=== PATIENT | male | born 1965 | race Caucasian/White ===

== ENCOUNTER 2023-12-18 15:55 | Observation (INO) ==
[2023-12-18] MEDS: ASPIRIN CHEW 324 MG PO STA (16:16)
--- NOTE | 2023-12-18 16:16 | Emergency Department Note ---
Impression & Plan Chest pain, Stroke-like symptoms ED Provider Note NAME: SOCORRO PROCTOR AGE: 58 SEX: M : 1965 ARRIVES VIA: Walk-In INFORMANT: Patient, ED PROVIDER(S): Johan Fried DO CHIEF COMPLAINT: Chest pain HPI: The patient is a 58-year-old male who presented to the emergency department for an evaluation of chest pain. The patient describes anterior chest pain which began early this morning. The patient is noticed episodes of nausea and vomiting. He also notices some shortness of breath. He denies having any lower extremity swelling or pain. The patient did not see his family doctor. His family went to visit him and noticed that he was in discomfort and brought him to the emergency department. The patient states the pain has been constant ever since that time but it waxes and wanes. He denies it is exertional in nature. He denies having any back pain at this time. ROS: See above HPI for pertinent positives & negatives. A total of 10 systems reviewed and were otherwise negative. PAST MEDICAL HISTORY: See Below PAST SURGICAL HISTORY: See Below FAMILY HISTORY: See Below SOCIAL HISTORY: See Below HOME MEDICATIONS: See Below ALLERGIES: See Below VITALS: See Below PHYSICAL EXAMINATION: GENERAL: Patient is awake alert in no acute distress patient is resting comfortably and showing no signs of anxiety EYES: The conjunctivae are clear. The pupils are round and reactive. EARS, NOSE, MOUTH AND THROAT: The nose is without any evidence of any deformity. NECK: The neck is nontender and supple. RESPIRATORY: Normal respiratory effort is noted there is no evidence of wheezing rhonchi or rales CARDIOVASCULAR: Regular rate and rhythm noted there no murmurs rubs or gallops normal S1 normal S2. GASTROINTESTINAL: The abdomen is soft. Abdomen is nontender. MUSCULOSKELETAL/EXTREMITIES: There is no evidence of gross deformity full range of motion is noted in the hips and shoulders. SKIN: There is no obvious evidence of any rash. There was no calf tenderness or swelling in the legs. NEUROLOGIC: Patient is awake alert and oriented x3 strength is symmetric patellar reflexes are 2+ bilaterally MEDICAL DECISION MAKING: The patient is a 58-year-old male who presented to the emergency department for evaluation of chest pain. The patient described anterior chest pain which had been going on throughout the day. I discussed the patient's laboratory and radiographic studies with him. I also discussed the limitations of the emergency department workup for chest pain with him. The patient also started having symptoms of facial droop according to family. They were also concerned that his speech was slurred. The patient did not have any focal neurologic deficits on my physical exam. CT the brain did not show any acute intracranial process. The patient was reevaluated multiple times. Given the patient's age and comorbidities I do feel the patient may be a better candidate for inpatient management and further workup for his neurologic symptoms as well as his chest pain. I will discuss his case with the on-call [facility] hospitalist. Triage Nursing notes reviewed. Prior medical records reviewed Vital Signs: reviewed and remarkable for elevated blood pressure. Differential diagnosis: Cardiac ischemia, aortic dissection, pulmonary embolism, pneumothorax, pneumonia, pericarditis, myocarditis, esophageal rupture, GERD, cholecystitis, pancreatitis, musculoskeletal, as well as other pathologies. ER treatment provided: See below Diagnostics interpreted by me: ECG: EKG was obtained in the emergency department. My interpretation is normal sinus rhythm at 68 bpm. There is no ectopy. There is no acute ST segment abnormalities noted. This was carried to a tracing from October 07, 2019. No changes were noted. Cardiac Monitoring: An order was placed for continuous cardiac monitoring. The monitor shows a rate of 55 bpm with sinus bradycardia. Laboratory studies: As stated above and show below. Imaging studies: See below. Radiographic imaging was reviewed by myself Consultation(s): I discuss case with Dr. Wagner [facility] Med/Surg History Problem List (Updated 12/18/23 @ 22:15 by Johan Fried DO) Stroke-like symptoms (Acute) Chest pain (Acute) Hypertension (~10/2020) Marijuana use, continuous Depression with anxiety Medical History Osteoarthritis Rectal bleeding Tinnitus Surgical History History of tooth extraction Family History Father Myocardial infarction Denies family history of Ovarian cancer Prostate cancer Breast cancer Colorectal cancer Social History Smoking Status: Former smoker Age Started Using Tobacco: 19; Age Quit Using Tobacco: 42; packs per day: 3; Second Hand Exposure: No; Do You Dip or Chew Tobacco: No; Hx Alcohol Use: Yes Alcohol type: beer Hx Substance Use: Yes Prescribed Medications: Marijuana Preferred Language: Kittitian Communication Ability: Effective Visual Impairment: No Limitations Hearing Ability: Hard of Hearing Disaster Recovery Specialist Required: No Beliefs That Will Affect Care: None marital status: Current Living Situation: Spouse current occupational status: employed How many Children do You have: 2 Feels Safe at Home: Yes Childhood Exposure to Second-Hand Smoke: Yes Diet: regular Diet Comment: regular caffeine: Yes during the past year weight has: remained stable Dental Care, Regularly: No Physical Activity Frequency: Daily Seatbelt Use: always Sunscreen Use: Yes Assistive Devices: Denture - Upper, Denture - Lower and Glasses Allergies Allergies Allergy/AdvReac Type Severity Reaction Status Date / Time No Known Allergies Allergy Unverified 09/07/22 07:03 Home Meds Home Medications Medication Instructions Recorded Confirmed acetaminophen 500 mg tablet 1,000 mg PO DAILY PRN Pain 10/29/19 12/18/23 (Tylenol Extra Strength) Zofran 1 tab PO DIRECTED PRN n/v 12/18/23 12/18/23 Previous Rx's Medication Instructions Recorded losartan 25 mg tablet 25 mg PO DAILY #90 tabs 06/05/23 Results & Data (ED) Vital Signs Vital Signs - 24 hr 12/18/23 15:57 12/18/23 16:08 12/18/23 16:08 Temperature 36.5 C Temperature Source Temporal Artery Scan Pulse Rate 74 Pulse Rate [Apical] 68 Respiratory Rate 20 26 H Respiratory Effort / Characteristics Non-Labored Spontaneous Respiratory Depth Normal Blood Pressure 130/92 Blood Pressure [Right Arm] 151/96 H Blood Pressure Mean 104 Blood Pressure Mean [Right Arm] 114 Pulse Oximetry 97 96 Oxygen Delivery Method Room Air Room Air Room Air Sepsis Recent Fever Within 48 Hours No Sepsis New/Unexplained Change in Mental Status No Sepsis Action Taken by Nursing No Action Required 12/18/23 16:13 12/18/23 18:00 12/18/23 19:00 Temperature Temperature Source Pulse Rate 67 Pulse Rate [Apical] 88 80 Respiratory Rate 20 18 Respiratory Effort / Characteristics Respiratory Depth Blood Pressure Blood Pressure [Right Arm] 169/93 H 150/91 H Blood Pressure Mean Blood Pressure Mean [Right Arm] 118 110 Pulse Oximetry 98 96 Oxygen Delivery Method Room Air Sepsis Recent Fever Within 48 Hours Sepsis New/Unexplained Change in Mental Status Sepsis Action Taken by Nursing 12/18/23 21:00 Temperature Temperature Source Pulse Rate Pulse Rate [Apical] 55 L Respiratory Rate 19 Respiratory Effort / Characteristics Respiratory Depth Blood Pressure Blood Pressure [Right Arm] Blood Pressure Mean Blood Pressure Mean [Right Arm] Pulse Oximetry 95 Oxygen Delivery Method Room Air Sepsis Recent Fever Within 48 Hours Sepsis New/Unexplained Change in Mental Status Sepsis Action Taken by Skilled Nursing Medications Current Medication List: was personally reviewed by me Laboratory Data Attestation: I reviewed the patient's lab results. 12/18/23 16:11 12/18/23 17:20 Lab Results 12/18/23 12/18/23 12/18/23 Range/Units 16:11 17:20 18:20 WBC 13.76 H (4.8-10.8) K/ul RBC 5.04 (4.70-6.10) M/uL Hgb 16.3 (14.0-18.0) g/dl Hct 46.8 (42.0-52.0) % MCV 92.9 (80.0-100.0) fL MCH 32.3 (25.0-34.0) pg MCHC 34.8 (32.0-36.0) g/dL RDW Std Deviation 45.3 (36.4-46.3) fL RDW Coeff of Jeb 13.3 (11.5-14.5) % Plt Count 166 (130-400) K/uL MPV 11.4 (9.4-12.4) fL Immature Gran % (Auto) 0.4 % Neut % (Auto) 82.6 % Lymph % (Auto) 12.4 % [place] % (Auto) 4.0 % Eos % (Auto) 0.3 % Baso % (Auto) 0.3 % Neut # (Auto) 11.36 H (1.40-6.50) K/uL Lymph # (Auto) 1.71 (1.20-3.40) K/uL [place] # (Auto) 0.55 (0.11-0.59) K/uL Eos # (Auto) 0.04 (0.00-0.50) K/uL Baso # (Auto) 0.04 (0.00-0.20) K/uL Immature Gran # (Auto) 0.06 (0.01-0.20) K/uL PT 10.2 (9.0-12.0) Seconds INR 0.9 (0.9-1.1) APTT 27 (21-31) Seconds PTT Ratio 1.0 D-Dimer 310 (0-500) ug/L FEU Sodium 139 (136-145) mmol/L Potassium TNP 4.0 Chloride 107 (98-107) mmol/L Carbon Dioxide 24 (21-32) mmol/L Anion Gap 8 (3-11) BUN 10 (6-23) mg/dl Creatinine 0.94 (0.6-1.4) mg/dl Est Cr Clr Drug Dosing 85.0 ml/min Est GFR ( Amer) 101.7 ml/min Est GFR (Non-Af Amer) 87.8 ml/min BUN/Creatinine Ratio 10.6 (10-20) Glucose 118 H (70-99(Fasting)) mg/dl Calcium 9.3 (8.6-10.3) mg/dl Total Bilirubin 1.5 H (0.2-1.0) mg/dl AST TNP 19 ALT 13 (7-52) U/L Alkaline Phosphatase 81 (34-104) U/L Troponin I High Sens 3.7 3.6 (0-20) pg/ml Total Protein 7.3 (6.0-8.3) gm/dl Albumin 4.7 (3.4-5.0) gm/dl Globulin 2.7 (2.5-4.0) gm/dl Albumin/Globulin Ratio 1.7 (0.9-2) Lipase 17 (11-82) U/L Urine Opiates Screen (Neg) Ur Methadone, Qual (Neg) Urine Fentanyl Screen (Neg) Urine Barbiturates (Neg) Ur Phencyclidine (PCP) (Neg) U Amphetamin/Meth Scrn (Neg) MDMA (Ecstasy) Screen (Neg) U Benzodiazepines Scrn (Neg) Ur Cocaine Metabolite (Neg) U Marijuana (THC) Screen (Neg) Anaplasma Smear Babesia Smear Lyme Disease Screen (Negative) 12/18/23 12/18/23 Range/Units 19:07 20:34 WBC (4.8-10.8) K/ul RBC (4.70-6.10) M/uL Hgb (14.0-18.0) g/dl Hct (42.0-52.0) % MCV (80.0-100.0) fL MCH (25.0-34.0) pg MCHC (32.0-36.0) g/dL RDW Std Deviation (36.4-46.3) fL RDW Coeff of Jeb (11.5-14.5) % Plt Count (130-400) K/uL MPV (9.4-12.4) fL Immature Gran % (Auto) % Neut % (Auto) % Lymph % (Auto) % [place] % (Auto) % Eos % (Auto) % Baso % (Auto) % Neut # (Auto) (1.40-6.50) K/uL Lymph # (Auto) (1.20-3.40) K/uL [place] # (Auto) (0.11-0.59) K/uL Eos # (Auto) (0.00-0.50) K/uL Baso # (Auto) (0.00-0.20) K/uL Immature Gran # (Auto) (0.01-0.20) K/uL PT (9.0-12.0) Seconds INR (0.9-1.1) APTT (21-31) Seconds PTT Ratio D-Dimer (0-500) ug/L FEU Sodium (136-145) mmol/L Potassium Chloride (98-107) mmol/L Carbon Dioxide (21-32) mmol/L Anion Gap (3-11) BUN (6-23) mg/dl Creatinine (0.6-1.4) mg/dl Est Cr Clr Drug Dosing ml/min Est GFR ( Amer) ml/min Est GFR (Non-Af Amer) ml/min BUN/Creatinine Ratio (10-20) Glucose (70-99(Fasting)) mg/dl Calcium (8.6-10.3) mg/dl Total Bilirubin (0.2-1.0) mg/dl AST ALT (7-52) U/L Alkaline Phosphatase (34-104) U/L Troponin I High Sens (0-20) pg/ml Total Protein (6.0-8.3) gm/dl Albumin (3.4-5.0) gm/dl Globulin (2.5-4.0) gm/dl Albumin/Globulin Ratio (0.9-2) Lipase (11-82) U/L Urine Opiates Screen Neg (Neg) Ur Methadone, Qual Neg (Neg) Urine Fentanyl Screen Neg (Neg) Urine Barbiturates Neg (Neg) Ur Phencyclidine (PCP) Neg (Neg) U Amphetamin/Meth Scrn Neg (Neg) MDMA (Ecstasy) Screen Neg (Neg) U Benzodiazepines Scrn Neg (Neg) Ur Cocaine Metabolite Neg (Neg) U Marijuana (THC) Screen Pos H (Neg) Anaplasma Smear See Comment Babesia Smear See Comment Lyme Disease Screen Negative (Negative) Administered Medications Discontinued Medications Aspirin (Aspirin Chew 324 Mg) 324 mg PO NOW STA Stop: 12/18/23 16:04 Last Admin: 12/18/23 16:16 Dose: 324 mg Documented By: ALLEN Ondansetron HCl (Ondansetron Inj 2 Mg/Ml 2 Ml Vial) 4 mg IV NOW STA Stop: 12/18/23 17:29 Last Admin: 12/18/23 17:34 Dose: 4 mg Documented By: ALLEN Imaging Data Attestation: I personally reviewed and interpreted this imaging study as follows: My Impression: 1 view chest x-ray was obtained in the emergency department. My interpretation is no free air or definite infiltrate, final report below. CT of the brain was obtained in the emergency department. My interpretation is no intracranial hemorrhage or mass effect, final report pending. Radiologist's Impression: Chest X-Ray 12/18/23 16:03 XR chest 1V portable HISTORY: Chest pain, nonspecific COMPARISON: Chest 11/11/2013. FINDINGS: The lungs are clear. Cardiac silhouette is normal in size. No pleural effusions. No pneumothorax. IMPRESSION: No acute process. ACT 112: Negative or not required by law. Electronically signed by: Uzair Palacios M.D. 12/18/2023 5:49 PM Discharge Plan Visit Data Chief Complaint: Chest Pain Stated Complaint: CHEST PAIN,NUMBNESS IN FACE,HTN ED Provider: Johan Fried Discharge Problem: Chest pain, Stroke-like symptoms Patient Disposition: Being Evaluated by Hospitalist Forms Stand Alone Forms: My [facility] Prescriptions Prescriptions: No Action losartan 25 mg tablet 25 mg PO DAILY Qty: 90 2RF acetaminophen [Tylenol Extra Strength] 500 mg tablet 1,000 mg PO DAILY PRN (Reason: Pain) Zofran 1 tab PO DIRECTED PRN (Reason: n/v) Referrals Referrals: Noam Edmonds CRNP [Primary Care Provider] - Discharge Problem: Chest pain Qualifiers: Chest pain type: unspecified Qualified Code(s): R07.9 - Chest pain, unspecified
[2023-12-18 16:32] LABS: Basophils # (auto) 0.04 K/uL (0.00-0.20); Basophils % (auto) 0.3 %; Eosinophils # (auto) 0.04 K/uL (0.00-0.50); Eosinophils % (auto) 0.3 %; Hematocrit (blood only) 46.8 % (42.0-52.0); Hemoglobin 16.3 g/dl (14.0-18.0); Immature Granulocytes # (auto) 0.06 K/uL (0.01-0.20); Immature Granulocytes % (auto) 0.4 %; Lymphocytes # (auto) 1.71 K/uL (1.20-3.40); Lymphocytes % (auto) 12.4 %; Mean Corpuscular Hemoglobin 32.3 pg (25.0-34.0); Mean Corpuscular Hgb Conc 34.8 g/dL (32.0-36.0); Mean Corpuscular Volume 92.9 fL (80.0-100.0); Mean Platelet Volume 11.4 fL (9.4-12.4); Monocytes # (auto) 0.55 K/uL (0.11-0.59); Neutrophils # (auto) 11.36 K/uL (1.40-6.50); Neutrophils % (auto) 82.6 %; Platelet Count 166 K/uL (130-400); RDW Coefficient of Variation 13.3 % (11.5-14.5); RDW Standard Deviation 45.3 fL (36.4-46.3); Red Blood Count 5.04 M/uL (4.70-6.10); White Blood Count 13.76 K/ul (4.8-10.8)
[2023-12-18 16:46] LABS: Alanine Aminotransferase 13 U/L (7-52); Albumin Level 4.7 gm/dl (3.4-5.0); Alkaline Phosphatase 81 U/L (34-104); Anion Gap 8 (3-11); BUN Creatinine Ratio 10.6 (10-20); Bilirubin,Total 1.5 mg/dl (0.2-1.0); Blood Urea Nitrogen 10 mg/dl (6-23); Calcium 9.3 mg/dl (8.6-10.3); Carbon Dioxide 24 mmol/L (21-32); Chloride 107 mmol/L (98-107); Est GFR (African American) 101.7 ml/min; Est GFR (Non-African American) 87.8 ml/min; Glucose 118 mg/dl (70-99(Fasting)); Lipase 17 U/L (11-82); Sodium 139 mmol/L (136-145)
[2023-12-18 16:53] LABS: INR 0.9 (0.9-1.1); Partial Thromboplastin Time 27 Seconds (21-31); Prothrombin Time 10.2 Seconds (9.0-12.0)
[2023-12-18 16:54] LABS: Troponin I High Sensitivity 3.7 pg/ml (0-20)
[2023-12-18 16:57] LABS: Albumin Globulin Ratio 1.7 (0.9-2); Globulin 2.7 gm/dl (2.5-4.0); Total Protein 7.3 gm/dl (6.0-8.3)
[2023-12-18] MEDS: ONDANSETRON INJ 2 MG/ML 2 ML VIAL IV STA (17:34)
--- NOTE | 2023-12-18 17:50 | XRay Report ---
XR chest 1V portable HISTORY: Chest pain, nonspecific COMPARISON: Chest 11/11/2013. FINDINGS: The lungs are clear. Cardiac silhouette is normal in size. No pleural effusions. No pneumot horax. IMPRESSION: No acute process. ACT 112: Negative or not required by law. Electronically signed by: Uzair Palacios M.D. 12/18/2023 5:49 PM
[2023-12-18 18:05] LABS: D Dimer 310 ug/L FEU (0-500)
[2023-12-18 21:11] LABS: Amphetamines+Metham, Urine Neg (Neg); Barbiturates, Urine Neg (Neg); Benzodiazepine, Urine Neg (Neg); Cocaine, Urine Neg (Neg); Fentanyl, Urine Neg (Neg); MDMA (Ecstacy), Urine Neg (Neg); Marijuana, Urine Pos (Neg); Methadone, Urine Neg (Neg); Opiate, Urine Neg (Neg); Phencyclidine, Urine Neg (Neg)
--- NOTE | 2023-12-18 22:32 | CT Scan Report ---
Exam(s): CT HEAD Without Contrast EXAM: CT Head Without Intravenous Contrast CLINICAL HISTORY: Reason for exam: facial numbness. TECHNIQUE: Axial computed tomography images of the head/brain without intravenous contrast. CTDI is 35.79 mGy and DLP is 546.36 mGy-cm. Automated exposure control was utilized for the study. A dose lowering technique was utilized adhering to the principles of ALARA. COMPARISON: No relevant prior studies available. FINDINGS: Brain: No hemorrhage, extra-axial fluid collection, mass effect, or edema. Ventricles: Unremarkable. Bones/joints: Unremarkable. No fracture. Soft tissues: Unremarkable. Sinuses: No acute sinusitis. Mastoid air cells: Unremarkable as visualized. IMPRESSION: 1. No acute intracranial abnormality. Electronically signed by: Cody Steve MD 12/18/23 22:31 PM
--- NOTE | 2023-12-18 23:34 | History & Physical Report ---
Date of Service December 18, 2023 Assessment & Plan (1) Chest pain: Plan: -Patient with nausea and vomiting as well as substernal chest pain that is burning in nature. -EKG in the emergency department showing normal sinus rhythm. -CBC with a slight leukocytosis, CMP unremarkable, lipase negative. -Tickborne illnesses pending. Negative Lyme disease. -Chest x-ray negative. -Troponin negative x 2, will repeat every 6 hours. -Given GI cocktail at time of admission. May consider starting on PPI if chest pain is noncardiac in nature. -Given 1 L bolus of LR at time of admission. -Hemoglobin A1c, lipid panel, CBC, CMP, and magnesium ordered for the a.m. -Was given aspirin 324 mg in the ED. -Echo ordered in the a.m. (2) Stroke-like symptoms: Plan: -Patient with right-sided weakness and right-sided facial droop 3 months ago. Did not seek out care. -Family concerns about facial droop and slurred speech, none seen on physical exam. -No focal deficits seen on physical exam, strength and sensation intact throughout. No signs of right sided deficits. -Head CT negative. -Will do echo for chest pain rule out, will add on bubble study. -PT OT ordered. -Hemoglobin A1c and lipid panel ordered in AM. -MRI brain ordered for the a.m. (3) Hypertension: Plan: -Continue losartan 25 mg daily. (4) Marijuana use, continuous: Plan: -Positive urine drug screen for marijuana. -Patient does state that marijuana helps with his nausea and vomiting. Plan Nutrition: Regular Code status: Full code DVT ppx: None, consider if prolonged stay. PT/OT: Consulted Dispo: Med with telemetry History of Present Illness Chief Complaint: Chest pain Primary Care Provider: EDVIN Leblanc Patient is a 58-year-old male with past medical history of hypertension and marijuana use. Patient was admitted to the hospital with chest pain. Patient started to have substernal chest pain earlier this morning with episodes of nausea and vomiting. He was also having some shortness of breath. Patient states that there is a burning sensation substernally and had some yesterday but again this morning. Pain has been constant and comes and goes. It does not get worse with exertion. Of note, patient's family discussed with the ED provider and nurse about slurred speech. With discussing with patient patient states about 3 months ago he had a facial droop on the right side of his face as well as weakness in his right arm and leg. This lasted for a couple of weeks and has since got better. Though he still notices some tingling around his mouth. Allergies Allergy/AdvReac Type Severity Reaction Status Date / Time No Known Allergies Allergy Unverified 09/07/22 07:03 Home Medications Medication Instructions Recorded Confirmed Type acetaminophen 500 mg tablet 1,000 mg PO DAILY PRN Pain 10/29/19 12/18/23 History (Tylenol Extra Strength) losartan 25 mg tablet 25 mg PO DAILY #90 tabs 06/05/23 12/18/23 Rx Zofran 1 tab PO DIRECTED PRN n/v 12/18/23 12/18/23 History Past Med/Surg History Problem List (Updated 12/18/23 @ 22:15 by Johan Fried DO) Stroke-like symptoms (Acute) Chest pain (Acute) Hypertension (~10/2020) Marijuana use, continuous Depression with anxiety Medical History Osteoarthritis Rectal bleeding Tinnitus Surgical History History of tooth extraction Family History Father Myocardial infarction Denies family history of Ovarian cancer Prostate cancer Breast cancer Colorectal cancer Social History Smoking Status: Never smoker Age Started Using Tobacco: 19; Age Quit Using Tobacco: 42; packs per day: 3; Second Hand Exposure: No; Do You Dip or Chew Tobacco: No; Hx Alcohol Use: Yes Alcohol type: beer Hx Substance Use: Yes Prescribed Medications: Marijuana Preferred Language: Uzbek Communication Ability: Effective Visual Impairment: No Limitations Hearing Ability: Hard of Hearing Creative Producer Required: No Beliefs That Will Affect Care: None marital status: Current Living Situation: Spouse current occupational status: employed How many Children do You have: 2 Feels Safe at Home: No Is there a partner from a previous relationship who is making you feel unsafe now?: No Childhood Exposure to Second-Hand Smoke: Yes Diet: regular Diet Comment: regular caffeine: Yes during the past year weight has: remained stable Dental Care, Regularly: No Physical Activity Frequency: Daily Seatbelt Use: always Sunscreen Use: Yes Assistive Devices: Denture - Upper, Denture - Lower and Glasses Review of Systems Review of Systems: All systems reviewed & are unremarkable except as noted in Subjective Physical Exam Physical Exam: Constitutional: well-appearing, no acute distress HEENT: NCAT, no conjunctival injection CV: regular rhythm, no murmur appreciated, extremities well-perfused, no LE edema Resp: CTABL, no wheezes/rales/rhonchi appreciated, no increased work of breathing GI: soft, nondistended, nontender, BS normoactive MSK: no gross deformities appreciated Skin: warm, dry, no rash appreciated Neuro: alert, oriented, no focal neurologic deficit appreciated Results & Data Results & Data Vital Signs (Past 12 Hours) Vital Signs Temp Pulse Pulse Resp BP BP Pulse Ox 12/18/23 21:00 55 L 19 95 12/18/23 19:00 80 18 150/91 H 96 12/18/23 18:00 88 20 169/93 H 98 12/18/23 16:13 67 12/18/23 16:08 12/18/23 16:08 68 26 H 151/96 H 96 12/18/23 15:57 36.5 C 74 20 130/92 97 O2 Del Method 12/18/23 21:00 Room Air 12/18/23 19:00 Room Air 12/18/23 18:00 12/18/23 16:13 12/18/23 16:08 Room Air 12/18/23 16:08 Room Air 12/18/23 15:57 Room Air Supervising Physician Co-Signing Physician Notes Patient seen and examined, chart reviewed, case discussed with Dr. Weber and I agree with the assessment and plan as above. Resident Activity Tracking Resident Involvement: Resident Care Provided Care Provided: Adult Hospital Medicine (1) Chest pain Chest pain type: unspecified Qualified Code(s): R07.9 - Chest pain, unspecified
[2023-12-18] MEDS: ALUMINUM/MAGNESIUM SUSP 30 ML UDC PO STA (23:37)
[2023-12-19] MEDS ORDERED: PHARMACIST DISCHARGE MED REC CONSULT PRN (00:53)
[2023-12-19] MEDS: LACTATED RINGER'S 1,000 ML IV ONE (00:56)
--- NOTE | 2023-12-19 04:30 | Billing Data ---
Date of Service December 18, 2023 Coding Level of Care Code 74698 INT INP/OBS CARE
[2023-12-19] MEDS: LOSARTAN POTASSIUM 25 MG TAB PO SCH (07:43)
[2023-12-19] MEDS: ACETAMINOPHEN 325 MG TAB PO PRN (07:43)
[2023-12-19 08:13] LABS: Estimated Average Glucose 111 mg/dl; Hemoglobin A1C 5.5 % (4.5-5.6)
[2023-12-19 08:25] LABS: Basophils # (auto) 0.04 K/uL (0.00-0.20); Basophils % (auto) 0.3 %; Eosinophils # (auto) 0.09 K/uL (0.00-0.50); Eosinophils % (auto) 0.6 %; Hematocrit (blood only) 43.4 % (42.0-52.0); Hemoglobin 15.1 g/dl (14.0-18.0); Immature Granulocytes # (auto) 0.06 K/uL (0.01-0.20); Immature Granulocytes % (auto) 0.4 %; Lymphocytes # (auto) 2.94 K/uL (1.20-3.40); Lymphocytes % (auto) 20.7 %; Mean Corpuscular Hgb Conc 34.8 g/dL (32.0-36.0); Mean Corpuscular Volume 91.9 fL (80.0-100.0); Monocytes # (auto) 1.08 K/uL (0.11-0.59); Monocytes % (auto) 7.6 %; Neutrophils # (auto) 9.99 K/uL (1.40-6.50); Neutrophils % (auto) 70.4 %; Platelet Count 207 K/uL (130-400); RDW Coefficient of Variation 13.3 % (11.5-14.5); RDW Standard Deviation 45.3 fL (36.4-46.3); Red Blood Count 4.72 M/uL (4.70-6.10)
[2023-12-19 08:34] LABS: Albumin Globulin Ratio 1.9 (0.9-2); Albumin Level 4.2 gm/dl (3.4-5.0); BUN Creatinine Ratio 9.6 (10-20); Bilirubin,Total 1.7 mg/dl (0.2-1.0); Chol HDL Ratio 3.8 (0-5); Creatinine Clr Calc Pharmacy 91.6 ml/min; Est GFR (African American) 110.8 ml/min; Est GFR (Non-African American) 95.6 ml/min; Globulin 2.2 gm/dl (2.5-4.0); Magnesium 1.8 mg/dl (1.7-2.4); Potassium 3.5 mmol/L (3.5-5.1); Total Protein 6.4 gm/dl (6.0-8.3)
--- NOTE | 2023-12-19 10:24 | XRay Report ---
XR orbits for MRI HISTORY: 58 years-old Male Screening for foreign body for MRI COMPARISON: Head CT December 18, 2023 TECHNIQUE: 3 views of the orbits FINDINGS: Mastoid air cells and paranasal sinuses appear clear. The patient is edentulous. No opaque foreign polina dy of the orbits identified. IMPRESSION: No opaque foreign body of the orbits identified. ACT 112: Negative or not required by law. The above report was generated using voice recognition software. It may contain grammatical, syntax o r spelling errors. Electronically signed by: Jeff Hernandez M.D. 12/19/2023 10:23 AM
[2023-12-19] MEDS: GADOBUTROL 65ML VIAL IV ONE (11:21)
[2023-12-19] MEDS: ONDANSETRON INJ 2 MG/ML 2 ML VIAL IV PRN (13:37)
[2023-12-19] MEDS ORDERED: ALUMINUM/MAGNESIUM SUSP 30 ML UDC PO PRN (13:41)
[2023-12-19] MEDS: ALUMINUM/MAGNESIUM SUSP 30 ML UDC PO STA (13:49)
--- NOTE | 2023-12-19 16:07 | Electrocardiogram Report ---
Test Reason : Blood Pressure : */* mmHG Vent. Rate : 68 BPM Atrial Rate : 68 BPM P-R Int : 174 ms QRS Dur : 86 ms QT Int : 404 ms P-R-T Axes : 14 53 31 degrees QTcB Int : 429 ms Normal sinus rhythm Normal ECG When compared with ECG of 07-Oct-2019 15:38, No significant change was found Confirmed by Jr Donis ([id number]) on 12/19/2023 4:07:16 PM Referred By: Confirmed By: Jr Donis
--- NOTE | 2023-12-19 17:09 | Hospitalist Progress Note ---
Date of Service December 19, 2023 Assessment & Plan (1) Chest pain: Plan: -Patient with nausea and vomiting as well as substernal chest pain that is burning in nature. -EKG in the emergency department showing normal sinus rhythm. -CBC with a slight leukocytosis, CMP unremarkable, lipase negative. -Tickborne illnesses pending. Negative Lyme disease. -Chest x-ray negative. -Troponin negative x 2, will repeat every 6 hours. -Given GI cocktail at time of admission. May consider starting on PPI if chest pain is noncardiac in nature. -Given 1 L bolus of LR at time of admission. -Hemoglobin A1c, lipid panel, CBC, CMP, and magnesium ordered for the a.m. -Was given aspirin 324 mg in the ED. -Echo ordered in the a.m. -This appears non cardiac in nature. Will not stres test as troponin are also negative. live pain is GI related. concern for possible canabinoid hyperemesis syndrome (2) Stroke-like symptoms: Plan: -Patient with right-sided weakness and right-sided facial droop 3 months ago. D id not seek out care. -Family concerns about facial droop and slurred speech, none seen on physical exam. -No focal deficits seen on physical exam, strength and sensation intact throughout. No signs of right sided deficits. -Head CT negative. -Will do echo for chest pain rule out, will add on bubble study. -PT OT ordered. -Hemoglobin A1c and lipid panel ordered in AM. -MRI brain ordered for the a.m. (3) Hypertension: Plan: -Continue losartan 25 mg daily. (4) Marijuana use, continuous: Plan: -Positive urine drug screen for marijuana. -Patient does state that marijuana helps with his nausea and vomiting. Plan Nutrition: Regular Code status: Full code DVT ppx: None, consider if prolonged stay. PT/OT: Consulted Dispo: Med with telemetry Admission and Anticipated Discharge Date Admission Date: December 18, 2023 Subjective Patient reports no new symptoms/ Review of Systems Review of Systems: All systems reviewed & are unremarkable except as noted in HPI & below Physical Exam Physical Exam: Constitutional: well-appearing, no acute distress HEENT: NCAT, CV: regular rhythm, no murmur appreciated, extremities well-perfused, no LE edema Resp: CTABL GI: soft, nondistended, nontender, BS normoactive MSK: no gross deformities appreciated Skin: warm, dry, no rash appreciated Neuro: alert, oriented, no focal neurologic deficit appreciated Results & Data Results & Data Vital Signs (Past 12 Hours) Vital Signs Temp Pulse Pulse Resp BP BP Pulse Ox 12/19/23 15:44 36.7 C 70 16 147/77 H 97 12/19/23 13:01 36.9 C 70 18 144/74 H 97 12/19/23 13:00 51 L 12/19/23 08:28 36.8 C 60 18 159/84 H 95 12/19/23 07:39 12/19/23 05:43 69 O2 Del Method 12/19/23 15:44 Room Air 12/19/23 13:01 Room Air 12/19/23 13:00 12/19/23 08:28 Room Air 12/19/23 07:39 Room Air 12/19/23 05:43 PG Care Time/CCT Total # of Minutes Spent Total Time Spent with Patient: Total time spent is greater than 50% in coordination of care (as documented) at patient's floor/unit and/or counseling patient: Coding Level of Care Code 35628 SUB INP/OBS CARE 2/35MIN Diagnoses Chest pain R07.9 Chest pain type: unspecified Stroke-like symptoms R29.90 Hypertension I10 Marijuana use, continuous F12.90 (1) Chest pain Chest pain type: unspecified Qualified Code(s): R07.9 - Chest pain, unspecified
[2023-12-19] MEDS: PROCHLORPERAZINE 5 MG in SYRINGE 4 ML IV ONE (17:48)
--- NOTE | 2023-12-19 18:14 | XCELERA ---
[id number]
[2023-12-19 23:21] VITALS: RESP 16
[2023-12-20 06:41] LABS: Hematocrit (blood only) 43.9 % (42.0-52.0); Hemoglobin 15.4 g/dl (14.0-18.0); Mean Corpuscular Hemoglobin 32.1 pg (25.0-34.0); Mean Corpuscular Hgb Conc 35.1 g/dL (32.0-36.0); Mean Corpuscular Volume 91.5 fL (80.0-100.0); Mean Platelet Volume 10.9 fL (9.4-12.4); Platelet Count 225 K/uL (130-400); RDW Coefficient of Variation 13.2 % (11.5-14.5); RDW Standard Deviation 44.6 fL (36.4-46.3); White Blood Count 14.37 K/ul (4.8-10.8)
[2023-12-20 07:05] LABS: Anion Gap 8 (3-11); BUN Creatinine Ratio 12.8 (10-20); Blood Urea Nitrogen 11 mg/dl (6-23); C Reactive Protein < 0.50 mg/dl (0-0.5); Calcium 9.2 mg/dl (8.6-10.3); Carbon Dioxide 26 mmol/L (21-32); Chloride 106 mmol/L (98-107); Creatinine Clr Calc Pharmacy 88.4 ml/min; Est GFR (African American) 109.2 ml/min; Est GFR (Non-African American) 94.3 ml/min; Glucose 127 mg/dl (70-99(Fasting)); Magnesium 1.9 mg/dl (1.7-2.4); Phosphorus 3.1 mg/dl (2.5-4.9); Potassium 3.5 mmol/L (3.5-5.1); Sodium 140 mmol/L (136-145)
[2023-12-20 07:49] VITALS: TEMP 98.2
--- NOTE | 2023-12-20 10:05 | Magnetic Resonance Report ---
MRI OF THE BRAIN COMBO CLINICAL HISTORY: Strokelike symptoms. COMPARISON STUDY: CT of the brain dated 12/18/2023. TECHNIQUE: MRI of the brain was performed utilizing various T1 and T2-weighted sequences in the axial , sagittal, and coronal planes. Contrast-enhanced sequences were acquired following the administratio n of 7.5 cc of Gadavist. FINDINGS: Brain parenchyma: There is mild microangiopathic change. There is no hemorrhage or mass effect. There is no restricted diffusion to suggest acute ischemia. No enhancing mass lesion is identified on the postcontrast images. Cohn-white matter differentiation is preserved. No extra-axial fluid collection is seen. The cerebellar tonsils are normal in configuration. A development venous anomaly is incident ally noted in the left parietal lobe. Ventricles, sulci, and cisterns: Normal in configuration. Pituitary and sella: Unremarkable. Intracranial vasculature: Normal flow voids are maintained at the skull base. Orbits: The bony orbits are grossly intact. Orbital contents are normal in appearance. Sinuses and mastoids: There is trace mucosal thickening within the ethmoid sinuses. The remaining par anasal sinuses and the mastoid air cells are clear. Calvarium: Unremarkable. Cervical cord: Partially visualized cervical spinal cord is normal in morphology and signal intensity . IMPRESSION: No acute intracranial abnormality is identified. ACT 112: Negative or not required by law. Electronically signed by: Bolivar Douglas M.D. 12/20/2023 10:03 AM
[2023-12-20 11:13] VITALS: O2SAT 98
[2023-12-20] MEDS ORDERED: STROKE PATIENT DISCHARGE STA (11:31)
[2023-12-20 11:45] VITALS: BP 144/74; PULSE 74
--- NOTE | 2023-12-21 08:28 | Discharge Summary ---
Discharge Summary Date of Service December 20, 2023 Principal Dx & Hospital Course #1 = Principal Diagnosis (1) Chest pain: -Patient with nausea and vomiting as well as substernal chest pain that is burning in nature. -EKG in the emergency department showing normal sinus rhythm. -CBC with a slight leukocytosis, CMP unremarkable, lipase negative. -Tickborne illnesses pending. Negative Lyme disease. -Chest x-ray negative. -Troponin negative x 2, will repeat every 6 hours. -Given GI cocktail at time of admission. May consider starting on PPI if chest pain is noncardiac in nature. -Given 1 L bolus of LR at time of admission. -Hemoglobin A1c, lipid panel, CBC, CMP, and magnesium ordered for the a.m. -Was given aspirin 324 mg in the ED. -Echo ordered in the a.m. -This appears non cardiac in nature. Will not stress test as troponin are also negative. pain is likely GI related. concern for possible canabinoid hyperemesis syndrome Patient will try to limit marijuana use. (2) Stroke-like symptoms: -Patient with right-sided weakness and right-sided facial droop 3 months ago. Did not seek out care. -Family concerns about facial droop and slurred speech, none seen on physical exam. -No focal deficits seen on physical exam, strength and sensation intact throughout. No signs of right sided deficits. -Head CT negative. -Will do echo for chest pain rule out, will add on bubble study. -PT OT ordered. -MRI brain was negative. (3) Hypertension: -Continue losartan 25 mg daily. (4) Marijuana use, continuous: -Positive urine drug screen for marijuana. -Patient does state that marijuana helps with his nausea and vomiting. Admission HPI Per Admitting Provider Patient is a 58-year-old male with past medical history of hypertension and marijuana use. Patient was admitted to the hospital with chest pain. Patient started to have substernal chest pain earlier this morning with episodes of n ausea and vomiting. He was also having some shortness of breath. Patient states that there is a burning sensation substernally and had some yesterday but again this morning. Pain has been constant and comes and goes. It does not get worse with exertion. Of note, patient's family discussed with the ED provider and nurse about slurred speech. With discussing with patient patient states about 3 months ago he had a facial droop on the right side of his face as well as weakness in his right arm and leg. This lasted for a couple of weeks and has since got better. Though he still notices some tingling around his mouth. Discharge Exam Constitutional: well-appearing, no acute distress HEENT: NCAT, CV: regular rhythm, no murmur appreciated, extremities well-perfused, no LE edema Resp: CTABL GI: soft, nondistended, nontender, BS normoactive MSK: no gross deformities appreciated Skin: warm, dry, no rash appreciated Neuro: alert, oriented, no focal neurologic deficit appreciated Discharge Plan Discharge Items Patient Disposition: Home - Self-Care Reason For Visit: CHEST PAIN Discharge Diagnosis: cannabinoid hyperemesis syndrome Activity: Resume your previous activity Non-emergency contact: Primary Care Provider Call non-emergency contact if: you have any medication questions Follow-up/Referrals: Noam Edmonds CRNP [Primary Care Provider] - 12/28/23 10:20 am Diet: Regular Addtl Attending Provider Instructions: Recommend we limit marijuana use as this could be the cause of your nausea and vomiting. Recommend followup with your PCP in 1-2 weeks. Your MRI of the brain was negative. Pending Studies at Discharge: No Stand-Alone Forms: [facility] [employer], Smoking Cessation Medications and DC Order Prescriptions: New famotidine [Pepcid] 40 mg tablet 40 mg PO HS Qty: 28 0RF ondansetron 4 mg tablet,disintegrating 4 mg PO BID PRN (Reason: nausea and vomiting) Qty: 10 0RF Continued losartan 25 mg tablet 25 mg PO DAILY Qty: 90 2RF acetaminophen [Tylenol Extra Strength] 500 mg tablet 1,000 mg PO DAILY PRN (Reason: Pain) Zofran 1 tab PO DIRECTED PRN (Reason: n/v) Discharge Orders: Discharge Order (Routine); Ordered 12/20/23 Ordered By: Lexx Hutchinson Admission Data Admit Date/Time: 12/18/23 23:34 Attending Provider: Lexx Hutchinson Admit Provider: Bolivar Weber Primary Care Provider: Noam Edmonds Other Providers: Kylah Wagner Other Interventions: Discharge Summary Assessment (RN) Last Done: 12/20/23 11:44 Hospital Stay Data Consultations 12/18/23 22:16 ED Decision to Admit Stat Diagnostic Imagining Performed 12/18/23 19:03 CT head/brain wo con Stat 12/19/23 00:53 MR brain wo/w con Routine Pending Results Patient Have Any Pending Studies at Discharge: No Discharge Instructions Given to Patient (Per Discharging Provider) Recommend we limit marijuana use as this could be the cause of your nausea and vomiting. Recommend followup with your PCP in 1-2 weeks. Your MRI of the brain was negative. Total Time Total Time Spent Total Time Spent (In Minutes): 32 Coding Level of Care Code 40225 INP/OBS DISCH >30 MIN Diagnoses Chest pain R07.9 Chest pain type: unspecified Stroke-like symptoms R29.90 Hypertension I10 Marijuana use, continuous F12.90
[2023-12-21 12:43] LABS: Marijuana Quant, GCMS Urine 1721 ng/mL (<5)
[2023-12-22 17:07] LABS: Ehrlichia chaff DNA Bld Negative (Negative)
== END 2023-12-20 12:49 | disposition home or self-care (01) | DRG 313 ==
LOC: ED 15:55 → 2N 23:34 → INTOOBSV 23:34 → SUATTDRO 23:34 → 2N 12-19 00:49